=== PATIENT | female | born 1935 | race Caucasian/White ===

== ENCOUNTER 2018-05-26 05:46 | Day surgery (SDC) | payer OTHER ==
[~2018-05-26] VITALS: Ht 154.9 cm; Wt 72.6 kg
--- NOTE | ~2018-05-26 | O ---
[facility] [place] [address] OPERATIVE REPORT Name: GERTRUDIS FISCHER Room #: 150-4 [facility]..#: [id number] Admission: 05/26/18 Attend Phys: Cisco Mae MD Discharge: Date of : 33 Report #: [id number] THIS REPORT FOR: //name// CC: Daniel Mae Isai Hanks MD DATE OF SERVICE: 05/26/2018 SURGEON: Cisco Mae MD PIPELINE CONTROLLER: None. PREOPERATIVE DIAGNOSIS: Bilateral lower lid ectropion. POSTOPERATIVE DIAGNOSIS: Bilateral lower lid ectropion. OPERATION PERFORMED: Bilateral lower lid ectropion repair. ANESTHESIA: Local with IV sedation. COMPLICATIONS: None. INDICATIONS FOR PROCEDURE: This patient has bilateral acquired lower lid ectropion with chronic tearing and discharge. The current procedures are undertaken in order to improve the patient's visual function, lacrimal outflow, and level of comfort. Informed consent was obtained to include but not limit to the risk of loss of vision, bleeding, infection, scarring, failure to improve the problem and need for further surgery. DESCRIPTION OF OPERATION: The patient was taken to the operating room where 2% Xylocaine with epinephrine mixed with equal parts of 0.75% Marcaine with Wydase was administered transcutaneously and transconjunctivally to each lower lid and lateral canthal area. The patient was then prepped and draped in the usual sterile fashion. A Luz Elena clamp was then used to clamp the left lateral canthus following which a sharp canthotomy and cantholysis were performed. The tarsal strip was prepared laterally, removing the lash bearing portion of the redundant lid margin and the redundant tarsal plate. Hemostasis was achieved with a monopolar cautery, as it was throughout the case. The tarsal strip was then secured to the internal portion of the lateral orbital tubercle with two interrupted 5-0 Prolene sutures. The lateral canthal angle was sharply reformed as the subcutaneous structures and the skin were closed with multiple interrupted 6-0 plain gut sutures. Attention was then turned to the right side where the same procedure was [facility] [address] [place] [address] OPERATIVE REPORT Name: GERTRUDIS FISCHER Room #: 150-4 [facility]..#: [id number] Admission: 05/26/18 Attend Phys: Cisco Mea MD Discharge: Date of : 33 Report #: [id number] performed. The wounds were cleaned and dressed with ophthalmic antibiotic ointment. The patient was then transported to the recovery area, having tolerated the procedure well with no anesthetic or operative complications being noted. By: [id number] Cisco Mae MD /nt
[~2018-05-26 05:46] MED LIST: ASPIR 8181 MG PO; FISH OIL OMEGA1 EAC3 PO; MOBIC15 MG PO; MULTI VITAMIN1 EACH PO; OMEPRAZOLE40 MG PO; VITAMIN D31000 UNI2 PO; ZOCOR20 MG PO
[2018-05-26 14:46] VITALS: BP 145/80
== END 2018-05-26 16:27 | disposition home or self-care (01) ==
LOC: OR 05:46 → TBA 05:46 → OR 11:22
DX: H02.105 Unspecified ectropion of left lower eyelid (principal); H02.102 Unspecified ectropion of right lower eyelid; G47.33 Obstructive sleep apnea (adult) (pediatric); E78.5 Hyperlipidemia, unspecified; K21.9 Gastro-esophageal reflux disease without esophagitis; Z87.891 Personal history of nicotine dependence; Z90.710 Acquired absence of both cervix and uterus; Z90.49 Acquired absence of other specified parts of digestive tract; Z98.890 Other specified postprocedural states; Z96.652 Presence of left artificial knee joint; Z79.899 Other long term (current) drug therapy; Z88.0 Allergy status to penicillin; Z79.82 Long term (current) use of aspirin
CPT/HCPCS: 50010; 50101; 50386; 50398; 51636; 56527; 56531; 62110; 62850; 70005

== ENCOUNTER 2018-06-23 05:33 | Day surgery (SDC) | payer OTHER ==
[~2018-06-23] VITALS: Ht 154.9 cm; Wt 72.6 kg
--- NOTE | ~2018-06-23 | O ---
[facility] [address] OPERATIVE REPORT Name: GERTRUDIS FISCHER Room #: 150-4 [facility] M..#: [id number] Admission: 06/23/18 Attend Phys: Cisco Mae MD Discharge: Date of : 33 Report #: [id number] THIS REPORT FOR: //name// CC: Daniel Mae Isai Hanks MD DATE OF SERVICE: 06/23/2018 PREOPERATIVE DIAGNOSIS: Bilateral upper lid ptosis with superior visual field defects both eyes. POSTOPERATIVE DIAGNOSIS: Bilateral upper lid ptosis with superior visual field defects both eyes. OPERATION PERFORMED: Bilateral upper lid functional ptosis repair. GROUP FITNESS MANAGER: None. ANESTHESIA: Local with IV sedation. COMPLICATIONS: None. INDICATIONS FOR PROCEDURE: This patient has bilateral upper lid ptosis with superior visual field loss both eyes. Visual field testing demonstrates dense superior visual defects. Retesting with the upper lid elevated shows an improvement in visual field loss of over 30% and in excess of 12 degrees. The current procedure is being undertaken in order to improve the patient's visual function. Informed consent was obtained to include but not limited to the risk of loss of vision, bleeding, infection, scarring, failure to improve the problem and need for further surgery, such as adjustment of lid height. DESCRIPTION OF PROCEDURE: The patient was taken to the operating room, where 2% Xylocaine with epinephrine mixed with equal parts of 0.75% Marcaine with Wydase was administered transcutaneously to each upper lid. The patient was then prepped and draped in the usual sterile fashion. An upper lid crease incision was then made bilaterally and the dissection was carried down until the orbital septum was identified. The orbital septum was then cleared and the preaponeurotic fat identified. The levator aponeurosis was then disinserted from the anterior surface of the tarsal plate and dissected free in the avascular Phillips's muscle plane. The aponeurosis was then advanced and reattached to the anterior surface of the tarsal plate with interrupted [facility] [address] [place] [address] OPERATIVE REPORT Name: AALIYAHGERTRUDIS DEMETRIUS Room #: [address] M..#: [id number] Admission: 06/23/18 Attend Phys: Cisco Mae MD Discharge: Date of : 33 Report #: [id number] mattress 6-0 Novafil sutures on each side, adjusting for height and contour. The redundant aponeurosis was then amputated. The incision was then closed with multiple interrupted 6-0 chromic sutures that were used to recreate an upper lid crease. The skin was closed with a running 6-0 plain gut suture. The wound was then cleaned and dressed with ophthalmic antibiotic ointment followed by a Telfa pad. The patient was transported to the recovery area, having tolerated the procedure well with no anesthesia or operative complications being noted. By: [id number] MD robert Quiñones
[~2018-06-23 05:33] MED LIST changes: +GABAPENTIN 100100 MG PO; +TYLENOL EXTRA500 MG PO
[2018-06-23 12:09] VITALS: BP 135/77
== END 2018-06-23 13:25 | disposition home or self-care (01) ==
LOC: OR 05:33 → TBA 05:34 → OR 11:16
DX: H02.403 Unspecified ptosis of bilateral eyelids (principal); H53.462 Homonymous bilateral field defects, left side; H53.461 Homonymous bilateral field defects, right side; Z68.30 Body mass index [BMI] 30.0-30.9, adult; G47.30 Sleep apnea, unspecified; Z87.891 Personal history of nicotine dependence; E78.5 Hyperlipidemia, unspecified; Z90.710 Acquired absence of both cervix and uterus; Z98.890 Other specified postprocedural states; K21.9 Gastro-esophageal reflux disease without esophagitis; M19.90 Unspecified osteoarthritis, unspecified site; Z98.41 Cataract extraction status, right eye; Z98.42 Cataract extraction status, left eye
CPT/HCPCS: 50010; 50101; 50386; 50398; 51636; 56528; 56531; 62110; 62850; 70005

== ENCOUNTER 2018-09-16 | Emergency (ER) | payer OTHER ==
[~2018-09-16] VITALS: Ht 152.4 cm; Wt 72.6 kg
[2018-09-16] MEDS ORDERED: PRESERVISION A1 EACH PO (00:53)
== END 2018-09-16 02:23 | disposition home or self-care (01) ==
LOC: ER
DX: S41.012A Laceration without foreign body of left shoulder, initial encounter (principal); S41.112A Laceration without foreign body of left upper arm, initial encounter; S40.012A Contusion of left shoulder, initial encounter; S00.81XA Abrasion of other part of head, initial encounter; S50.812A Abrasion of left forearm, initial encounter; K21.9 Gastro-esophageal reflux disease without esophagitis; E78.5 Hyperlipidemia, unspecified; Z90.710 Acquired absence of both cervix and uterus; Z88.0 Allergy status to penicillin; Z88.8 Allergy status to other drugs, medicaments and biological substances; Z79.899 Other long term (current) drug therapy; W01.0XXA Fall on same level from slipping, tripping and stumbling without subsequent striking against object, initial encounter; Y93.89 Activity, other specified; Y92.009 Unspecified place in unspecified non-institutional (private) residence as the place of occurrence of the external cause; Y99.8 Other external cause status

== ENCOUNTER 2018-10-08 19:33 | Emergency (ER) | payer OTHER ==
[~2018-10-08] VITALS: Ht 152.4 cm; Wt 77.1 kg
[~2018-10-08 19:33] MED LIST changes: +LYRICA 50 MG50 MG PO; +MOBIC7.5 MG PO; +PRESERVISION A1 EACH PO
[2018-10-08] MEDS ORDERED: KEFLEX500 M1 PO (22:13)
[2018-10-08] MEDS ORDERED: TRAMADOL 50 MG50 MG PO (22:13)
[2018-10-08 22:34] VITALS: BP 172/70
== END 2018-10-08 22:39 | disposition home or self-care (01) ==
LOC: ER 19:33
DX: S81.811A Laceration without foreign body, right lower leg, initial encounter (principal); S70.01XA Contusion of right hip, initial encounter; S70.11XA Contusion of right thigh, initial encounter; S09.90XA Unspecified injury of head, initial encounter; G47.30 Sleep apnea, unspecified; K21.9 Gastro-esophageal reflux disease without esophagitis; E78.5 Hyperlipidemia, unspecified; M19.90 Unspecified osteoarthritis, unspecified site; M48.00 Spinal stenosis, site unspecified; Z87.891 Personal history of nicotine dependence; Z88.0 Allergy status to penicillin; Z91.048 Other nonmedicinal substance allergy status; Z90.710 Acquired absence of both cervix and uterus; Z90.49 Acquired absence of other specified parts of digestive tract; Z90.89 Acquired absence of other organs; Z96.652 Presence of left artificial knee joint; W01.198A Fall on same level from slipping, tripping and stumbling with subsequent striking against other object, initial encounter; Y92.89 Other specified places as the place of occurrence of the external cause; Y93.89 Activity, other specified; Y99.8 Other external cause status

== ENCOUNTER 2019-11-05 07:13 | Day surgery (SDC) | payer OTHER ==
[~2019-11-05] VITALS: Ht 154.9 cm; Wt 74.4 kg
[~2019-11-05 07:13] MED LIST changes: +KEFLEX500 M1 PO; +TRAMADOL 50 MG50 MG PO
[2019-11-05 08:10] VITALS: BP 164/83
--- NOTE | 2019-11-09 06:15 | O ---
[facility] [place] [address] OPERATIVE REPORT Name: GERTRUDIS FISCHER Room #: DEP [facility].#: [id number] Admission: 11/05/19 Attend Phys: Cisco Mae MD Discharge: 11/05/19 Date of : 33 Report #: [id number] THIS REPORT FOR: //name// CC: SY Hanks MD DATE OF SERVICE: 11/05/2019 SURGEON: Cisco Mae MD INDUSTRIAL HYGIENE ENGINEER: None. PREOPERATIVE DIAGNOSIS: Bilateral upper lid dermatochalasia with superior visual field defect. POSTOPERATIVE DIAGNOSIS: Bilateral upper lid dermatochalasia with superior visual field defect. OPERATION PERFORMED: Bilateral upper lid functional blepharoplasty. ANESTHESIA: Local with IV sedation. COMPLICATIONS: None. INDICATIONS FOR SURGERY: This patient has acquired upper lid dermatochalasia with superior visual field loss both eyes because of excessive upper lid tissues to include skin and fat. Visual field testing demonstrates dense superior visual defects. Retesting with the upper lid elevated shows an improvement in visual field loss of over 30% and in excess of 12 degrees. The current procedures are undertaken in order to improve the patient's visual function. Informed consent was obtained to include but not limited to the loss of vision, bleeding, infection, scarring, failure to improve the problem and need for further surgery. DESCRIPTION OF OPERATION: The patient was taken to the operating room, where 2% Xylocaine with epinephrine mixed with equal parts of 0.75% Marcaine with Wydase was administered transcutaneously to each upper lid. The patient was then prepped and draped in the usual sterile fashion and a skin-marking pen was then utilized to outline an upper lid crease that was symmetrical on each side. Graefe forceps were then used to quantitate the redundant upper lid skin and it was similarly outlined. The incisions were then made with Alejandro scissors and a skin-muscle flap removed from each side with high-temp cautery. Hemostasis was achieved with the monopolar cautery as it was throughout the case. The [address] [address] OPERATIVE REPORT Name: GERTRUDIS FISCHER Room #: [facility].#: [id number] Admission: 11/05/19 Attend Phys: Cisco Mea MD Discharge: 11/05/19 Date of : 33 Report #: [id number] orbital septum was then identified and the central and medial fat pads were inspected. The redundant soft tissue was then sculpted with the monopolar cautery. The upper lid crease was then reformed with tightening of the pretarsal orbicularis muscle. The upper lid crease was then further reformed with multiple interrupted 6-0 chromic sutures. The skin was then closed with a running 6-0 plain gut suture. The wound was then cleaned and dressed with ophthalmic antibiotic ointment and a nonstick dressing. The patient was transported to the recovery area, where cold compresses were applied, having tolerated the procedure well with no anesthetic or operative complications being noted. <ELECTRONICALLY SIGNED> By: Cisco Mae MD 11/09/19 0615 Cisco Mae MD /nt
== END 2019-11-05 11:20 | disposition home or self-care (01) ==
LOC: OR 07:13 → TBA 07:14 → OR 09:50
DX: H02.834 Dermatochalasis of left upper eyelid (principal); H02.831 Dermatochalasis of right upper eyelid; H53.462 Homonymous bilateral field defects, left side; H53.461 Homonymous bilateral field defects, right side; G47.30 Sleep apnea, unspecified; E78.5 Hyperlipidemia, unspecified; K21.9 Gastro-esophageal reflux disease without esophagitis; M19.90 Unspecified osteoarthritis, unspecified site; Z98.890 Other specified postprocedural states; Z90.710 Acquired absence of both cervix and uterus; Z87.891 Personal history of nicotine dependence; Z90.49 Acquired absence of other specified parts of digestive tract; Z98.41 Cataract extraction status, right eye; Z98.42 Cataract extraction status, left eye; Z79.899 Other long term (current) drug therapy; Z88.0 Allergy status to penicillin
CPT/HCPCS: 50010; 50101; 50386; 50398; 51636; 56531; 62110; 62850; 70005